=== PATIENT | male | born 1960 | race Caucasian/White ===

== ENCOUNTER 2016-11-26 23:39 | Emergency (ER) | payer OTHER ==
[2016-11-26] MEDS ORDERED: Bacitracin Oint 1 GM U/D Packet TOP ONE (23:51)
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
[2016-11-27] MEDS ORDERED: Sodium Chloride 0.9% 1,000 ML IV SCH (00:45)
[2016-11-27 01:04] LABS: CHLORIDE,CL 105 mmol/L (98-110); SODIUM,NA 139 mmol/L (136-146)
[2016-11-27 02:10] VITALS: BP 128/70
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
== END 2016-11-27 02:09 | disposition left against medical advice (07) ==
LOC: MW.ED 23:39 → UNDOADMOB 11-27 00:15 → MW.MS 11-27 00:15 → UNDODISOB 11-27 02:12
DX: S06.0X1A Concussion with loss of consciousness of 30 minutes or less, initial encounter (principal); S00.83XA Contusion of other part of head, initial encounter; F10.920 Alcohol use, unspecified with intoxication, uncomplicated
CPT/HCPCS: 36415; 70450; 70486; 80053; 85025; 99285; G0480